=== PATIENT | female | born 1945 | race Caucasian/White ===

== ENCOUNTER 2019-02-21 12:58 | Emergency (ER) | payer MEDICAID ==
[~2019-02-21] VITALS: Ht 162.6 cm; Wt 80.7 kg
[2019-02-21 13:01] VITALS: Ht 162.6 cm; Wt 80.7 kg
--- NOTE | 2019-02-21 13:58 | ERD ---
ER Documentation Chief Complaint Chief Complaint palpitations x1 mo HPI The patient is a 73-year-old female, presenting to the ER because she needs EKG for her breast surgery tomorrow by Dr. Danielle. She denies any syncope, near syncope, neck pain, chest pain, complains of intermittent palpitation for the last month but denies any palpitation now, denies abdominal pain, vomiting. She does not smoke nor drink She was recently diagnosed with left breast cancer carcinoma Past medical history: History of left breast CA, hiatal hernia, hepatic cyst Past surgical history: Cholecystectomy ROS All systems reviewed and are negative except as per history of present illness. Allergies Allergies: Coded Allergies: No Known Allergy (Unverified , 02/18/19) PMhx/Soc History of Surgery: Yes (CHOLECYSTECTOMY) Anesthesia Reaction: No Hx Neurological Disorder: No Hx Respiratory Disorders: No Hx Cardiac Disorders: No Hx Psychiatric Problems: No Hx Miscellaneous Medical Probl: No Hx Alcohol Use: No Hx Substance Use: No Hx Tobacco Use: No Physical Exam Vitals Vital Signs Date Temp Pulse Resp B/P (MAP) Pulse Ox O2 O2 Flow FiO2 Time Delivery Rate 02/21/19 98.9 65 18 122/74 99 Room Air 14:17 (90) 02/21/19 98.1 65 18 150/80 98 13:01 (103) Physical Exam Const: No acute distress. Head: Atraumatic. Eyes: Normal Conjunctiva. ENT: Normal External Ears, Nose and Mouth. Neck: Full range of motion. No meningismus. Resp: Clear to auscultation bilaterally. Cardio: Regular rate and rhythm. Abd: Soft, non distended, normal bowel sounds, non tender. Skin: No petechiae or rashes. Back: No midline or flank tenderness. Ext: No cyanosis, or edema. Neur: Awake and alert. No focal deficit Psych: Normal Mood and Affect. Procedures/MDM EKG: Read by emergency physician Rate/Rhythm: Normal Sinus Rhythm 63 beats/min QRS, ST, T-waves: No ST elevation, anterior T abn Impression: Abnormal EKG MEDICAL MAKING DECISION: The patient is an 73-year-old female, presenting with intermittent palpitation but denies any symptom now, is stable for outpatient follow-up The differential diagnoses considered include but are not limited to acute coronary syndrome, acute myocardial infarction, pericarditis, pulmonary embolism, aortic dissection, pneumonia, pleural effusion, pneumothorax, GERD, chest wall pain. Departure Diagnosis: Primary Impression: Palpitations Condition: Good Comments The patient's blood pressure was elevated (>120/80) but appears stable without evidence of hypertension emergency or urgency. The patient was counseled about the risks of hypertension and urged to pursue outpatient monitoring and therapy within a week with their primary care physician. I discussed the findings with the patient. I advised the patient to follow-up with the primary physician in about 2-3 days, sooner if needed and return if any concern. Disclaimer: Inadvertent spelling and grammatical errors are likely due to EHR/dictation software use and do not reflect on the overall quality of patient care. Also, please note that the electronic time recorded on this note does not necessarily reflect the actual time of the patient encounter. FARHAT PROCTOR MD February 21, 2019 13:58
[2019-02-21 14:17] VITALS: BP 122/74; PULSE 65; RESP 18
[2019-02-22] MEDS ORDERED: DEXL60CA2 PO (09:01)
== END 2019-02-21 14:48 | disposition home or self-care (01) ==
LOC: E/R 12:58
DX: R00.2 Palpitations (principal); Z85.3 Personal history of malignant neoplasm of breast
CPT/HCPCS: 93005; Z7502

== ENCOUNTER 2019-02-22 06:33 | Inpatient (IN) | payer MEDICAID ==
[2019-02-18 18:51] VITALS: Ht 157.5 cm; Wt 80.0 kg
[~2019-02-22] VITALS: Ht 157.5 cm; Wt 80.0 kg
[2019-02-22] VITALS (15 sets, daily range): BP systolic 91–137; BP diastolic 53–78; PULSE 54–79; RESP 10–20
[~2019-02-22 06:33] MED LIST: CEFAZOLIN 2 GM/50 ML (PMX) 50 ML IVPB ONE
[2019-02-22] MEDS ORDERED: ACETAMINOPHEN 500 MG TAB PO ONE (07:30)
[2019-02-22] MEDS ORDERED: DESFLURANE 15 MIN ONE (08:00)
[2019-02-22] MEDS ORDERED: PROPOFOL 40 ML ONE (08:20)
[2019-02-22] MEDS ORDERED: MIDAZOLAM 1 MG/ML 2 ML INJ ONE (08:20)
[2019-02-22] MEDS ORDERED: FAMOTIDINE 20 MG INJ ONE (08:20)
[2019-02-22] MEDS ORDERED: CEFAZOLIN 1 GM INJ ONE (08:22)
[2019-02-22] MEDS ORDERED: FENTAnyl 50 MCG/ML VIAL ONE ×2 (08:22→11:18)
[2019-02-22] MEDS ORDERED: ONDANSETRON 4 MG INJ ONE (08:22)
[2019-02-22] MEDS ORDERED: ISOSULFAN BLUE 1% 5 ML INJ SC ONE (08:37)
[2019-02-22] MEDS ORDERED: DEXL60CA2 PO (09:01)
--- NOTE | 2019-02-22 09:39 | PREAC ---
Date/Time of Note Date/Time of Note DATE: 02/22/19 TIME: 09:37 Anesthesia Eval and Record Evaluation Time Pre-Procedure Interview DATE: 02/22/19 TIME: 09:37 Age 73 Sex female NPO: 8 hrs Preoperative diagnosis L breast CA Planned procedure L needle loc partial mastectomy Past Medical History Past Medical History: Includes GI: GERD, Other (esophageal hernia; gastritis) Surgery & Anesthesia Issues No known issue Meds Anticoagulation: No Beta Andre within 24 hr: No Reason Beta Andre not given: Pt. not on B-Andre Reported Medications Dexlansoprazole (Dexilant) 60 Mg Harley., 60 MG PO DAILY, #30 CAP 02/22/19 Meds reviewed: Yes Allergies Coded Allergies: No Known Allergy (Unverified , 02/22/19) Allergies Reviewed: Yes Labs/Studies Labs Reviewed: Reviewed by anesthesiologist Result Diagram: 02/18/19 1633 02/18/19 1633 test: N/A Studies: ECG, CXR Pre-procedure Exam Last vitals Vital Signs Date Temp Pulse Resp B/P (MAP) Pulse Ox O2 O2 Flow FiO2 Time Delivery Rate 02/22/19 96.8 58 16 137/78 98 Room Air 09:21 (97) Airway: Adequate mouth opening, Adequate thyromental dist Mallampati: Mallampati II Teeth: Abnormal (edentulous) Lung: Normal Heart: Normal ASA Physical Status ASA physical status: 2 Emergency: None Planned Anesthetic General/MAC: ETT Pre-operative Attestations Prior to commencing anesthesia and surgery, the patient was re-evaluated, there was verification of: *The patient's identity *The results of appropriate recent lab work and preoperative vital signs *The above evaluation not changing prior to induction *Anesthetic plan, risk benefits, alternative and complications discussed with patient/family; questions answered; patient/family understands, accepts and wishes to proceed. Financial Services Technician used HUYEN FRANKLIN February 22, 2019 09:39
[2019-02-22] MEDS ORDERED: HYDROmorphONE 1 MG/5 ML IV SYRINGE IV PRN ×3 (10:00)
[2019-02-22] MEDS ORDERED: morphine 2 MG INJ IV PRN ×3 (10:00→11:00)
[2019-02-22] MEDS ORDERED: LABETALOL HCL 20MG INJ IV PRN (10:00)
[2019-02-22] MEDS ORDERED: OXYCODONE/ACETAMINOPHEN (5/325) TAB PO PRN ×2 (10:00)
[2019-02-22] MEDS ORDERED: FENTAnyl 50 MCG/ML VIAL IV PRN (10:00)
[2019-02-22] MEDS ORDERED: ALBUTEROL 0.083% (NEB) 2.5 MG/3 ML AMP HHN PRN (10:00)
[2019-02-22] MEDS ORDERED: DIPHENHYDRAMINE 50 MG INJ IV PRN (10:00)
[2019-02-22] MEDS ORDERED: MEPERIDINE 25 MG INJ IV PRN (10:00)
[2019-02-22] MEDS ORDERED: ONDANSETRON 4 MG INJ IV PRN ×2 (10:00→11:00)
--- NOTE | 2019-02-22 10:59 | SIPON ---
Date/Time of Note Date/Time of Note DATE: 02/22/19 TIME: 10:58 Operative Report Preoperative Diagnosis Invasive cancer left breast Postoperative Diagnosis Same Operation/Procedure Performed Left needle directed partial mastectomy and axillary dissection utilizing sentinel lymph node technique Surgeon see signature line assisted living care manager Dr Bullock Anesthesia: general Estimated blood loss: 50 - 100 ml's Transfusion Required none Specimen Left partial mastectomy specimen and sentinel lymph node with additional axillary lymph nodes Grafts/Implants none Complications none CHAZ OZUNA MD February 22, 2019 10:59
[2019-02-22] MEDS ORDERED: ACETAMINOPHEN 1000MG/100ML IV 100 ML IVPB PRN (11:00)
[2019-02-22] MEDS ORDERED: PHENYLephrine (100 MCG/ML) 10ML SYG ONE (11:13)
[2019-02-22] MEDS ORDERED: EPHEDrine 25 MG/5 ML SYG ONE (11:13)
[2019-02-22] MEDS ORDERED: GLYCOPYRROLATE 0.4 MG INJ ONE (11:21)
[2019-02-22] MEDS ORDERED: NEOSTIGMINE 3 MG/3 ML SYRINGE ONE (11:21)
--- NOTE | 2019-02-22 11:45 | PAC ---
Date/Time of Note Date/Time of Note DATE: 02/22/19 TIME: 11:44 Post-Anesthesia Notes Post-Anesthesia Note Last documented vital signs Vital Signs Date Temp Pulse Resp B/P Pulse Ox O2 O2 Flow FiO2 Time (MAP) Delivery Rate 02/22/19 96.8 98.7 58 79 16 18 137/78 98 98 Room 09:21 113 (97) 93/ Air RA 9 54 Activity: WNL Respiratory function: WNL Cardiovascular function: WNL Mental status: Baseline Pain reasonably controlled: Yes Hydration appropriate: Yes Nausea/Vomiting absent: Yes HUYEN FRANKLIN February 22, 2019 11:45
[2019-02-22] MEDS: FENTAnyl 50 MCG/ML VIAL IV PRN ×2 (12:04→12:30)
[2019-02-22] MEDS: D5W-0.45 NACL + KCL 20 MEQ 1,000 ML IV SCH ×2 (15:36→18:39)
--- NOTE | 2019-02-22 15:38 | OPR ---
DATE OF OPERATION: 02/22/2019 PREOPERATIVE DIAGNOSIS: Invasive cancer, left breast. POSTOPERATIVE DIAGNOSIS: Invasive cancer, left breast. OPERATION PERFORMED: Needle-directed left partial mastectomy with axillary dissection utilizing sent inel lymph node technique. ANESTHESIA: General. ANESTHESIOLOGIST: Nurse electronic service technician, Racheal Terrell NP SURGEON: Anselmo Danielle MD FLAT OPTICAL ELEMENT MAKER: Jose Bullock MD INDICATIONS FOR PROCEDURE: The patient is a 73-year-old female who underwent screening mammography a nd was found to have a suspicious lesion in her left breast. Core biopsy confirmed a triple negative breast cancer. She and her family were counseled as to risks versus benefits of surgery. They cons ented and she was scheduled for surgery. DESCRIPTION OF PROCEDURE: On the morning of surgery, the patient presented to [facility] where she underwent localization of the lesion performed by attending radiolog ist, Dr. Chad Jensen. Subsequently, she was brought to the operating theater, placed under gener al anesthesia. The left breast and axillary region were prepped and draped in the usual sterile fash ion. Approximately 3 to 4 mL of 1% Lymphazurin blue dye were then injected peritumorally. The breas t was gently massaged for approximately 12 minutes. At this point, a 3 to 4 cm incision was made in the left axillary hairline. Subcutaneous tissue was dissected with cautery down through the clavipec kate fascia. A dye stain lymphatic was identified, traced to the sentinel lymph node. There were a dditional lymph nodes in this area. The sentinel node and some additional nodes were then resected u sing the LigaSure device. Specimen was removed and sent for intraoperative analysis performed by att ending pathologist, Dr. Mj Putnam. Frozen section of the sentinel node was negative for eviden ce of metastatic disease. Therefore, the specimen was sent for permanent pathologic analysis and no other lymph nodes were taken. The wound was irrigated. Minimal bleeding was controlled with cautery . A #10 [place] Gm-Liao drain was then brought through the left mid axillary line, cut to size and laid within the axilla. It was secured in place with 2-0 nylon sutures in standard fashion. The skin was then reapproximated with 4-0 Vicryl suture in subcuticular fashion. Attention was then dir ected to performing the partial mastectomy. A curvilinear anterior incision was made at the 2 o'cloc k location in the region of the previous placed localization wire for a length of approximately 4 to 5 cm. Subcutaneous tissue was dissected with cautery and the skin edges were elevated with skin hook s. Wide circumferential dissection of the tissue associated with the wire then took place, taking gr eat care to ensure adequate margin. Specimen was then elevated, transected, oriented, sent for radio graphic confirmation of capture. Capture was confirmed. Specimen was then sent for permanent pathol ogic analysis. The wound was irrigated. Minimal bleeding was controlled with cautery. A second latia in was brought through the left mid axillary line, cut to size and laid within the wound cavity. Ski n was reapproximated with a deep dermal layer, 4-0 Vicryl sutures in interrupted fashion, followed by final skin approximation with 5-0 PDS sutures in subcuticular fashion. Dermabond was then applied t o both incisions. The patient tolerated procedure well. The estimated blood loss was 80 mL. There were no complications and the patient was then transported in stable condition to the recovery room w here circumferential compression dressing was applied. Dictated By: ANSELMO FARAH/LASHA Conf#: [id number] DID#: [id number]
--- NOTE | 2019-02-22 16:49 | HP ---
DATE OF ADMISSION: 02/22/2019 CHIEF COMPLAINT AND HISTORY OF PRESENT ILLNESS: The patient is a 73-year-old female with history of invasive cancer of left breast. The patient was seen by Dr. Ozuna as an outpatient and brought into the hospital today and underwent left partial mastectomy and axillary resection utilizing sentinel ly mph node technique. The patient has significant chest wall pain and is being admitted for further ev aluation and management. The patient denies history of headache, dizziness, syncope. No reported na usea, vomiting. No reported abdominal pain. No reported resting leg pain. No reported shortness of breath. No reported any previous history of hypertension, diabetes or CHF. No history of CVA in th e past. No history of any musculoskeletal pain prior to surgery. REVIEW OF SYSTEMS: Other than postoperative pain, rest of review of systems is unremarkable. PAST MEDICAL HISTORY: As stated above. ALLERGIES: NONE. SOCIAL HISTORY: No smoking or alcohol. FAMILY HISTORY: Noncontributory. MEDICATIONS PRIOR TO ADMISSION: Dexilant. PHYSICAL EXAMINATION: GENERAL: Revealed the patient to be awake, alert, fairly oriented. VITAL SIGNS: Temperature 98.7, pulse 58, respiration 19, blood pressure 110/58, O2 saturation 96% on room air. HEENT: No eye discharge or redness. Conjunctivae and lids are normal. Nose and ears are normal. O ropharynx is clear. NECK: Supple. No mass, thyromegaly. CHEST: Fairly clear. No use of accessory muscles. CARDIOVASCULAR: Regular rate and rhythm. S1, S2 normal. No murmur. ABDOMEN: Soft, nondistended, nontender. Bowel sounds are present. EXTREMITIES: No leg edema. NEUROLOGIC: The patient is awake, alert, fairly oriented with no gross focal deficit. LABORATORY DATA: Recently WBC 5.9, hemoglobin 12.8, platelet 251. Sodium 142, potassium 4.2, BUN 18 , creatinine 0.7, glucose 99. AST 27, ALT 15, alkaline phosphatase 75, albumin 4.3. DIAGNOSTIC DATA: Chest x-ray is unremarkable. IMPRESSION: Invasive cancer of left breast, status post partial mastectomy and axillary resection. The patient will be admitted on medical floor. The patient will be started on clear liquid diet, whi ch will be advanced as tolerated. For pain, the patient was started on IV Tylenol, [place] and IV morp kael depending upon severity of pain. For deep venous thrombosis prophylaxis, we will use SCDs. If the patient continues to do well, she will be discharged home tomorrow. We will do followup labs. Dictated By: MELY DONAHUE/LASHA Conf#: [id number] DID#: [id number] CC: CHAZ OZUNA MD;*End*
[2019-02-22] MEDS ORDERED: DIPHENHYDRAMINE 50 MG INJ IV ONE (18:00)
[2019-02-22] MEDS ORDERED: METOCLOPRAMIDE 10 MG INJ IV PRN (18:00)
[2019-02-22] MEDS ORDERED: HYDROCORTISONE 100 MG INJ IV ONE (18:00)
--- NOTE | 2019-02-22 18:13 | EN ---
Date/Time of Note Date/Time of Note DATE: 02/22/19 TIME: 18:05 Event Note Medicine Medicine Event Note Rapid response called around 17:39 for suspected acute anaphylaxis. Briefly, Ms. Juarez is a 73 yo woman admitted for scheduled mastectomy. After surgery she was on IV morphine for pain control. After her first dose of IV zofran in the hospital, she complained of sudden onset cheek swelling and difficulty breathing. Dr. Diaz was called and ordered IV benadryl and IV hydrocortisone. Apparently the patient's family was very concerned and wanted IM epinephrine administered as well, so rapid response was called. On my evaluation the patient was sitting comfortably in bed, saturating 100% on room air, BP and pulse normal. I noticed she had swollen and boggy parotid glands bilaterally, and they were very tender to touch. She was able to open her mouth fully and the airway seems widely patent without notable adenopathy. Heart rate normal and there was no wheezing on auscultation of the lungs. Plan: 1. If this is an acute drug reaction, it's an unusual one. The patient did respond to benadryl and hydrocortisone. No epinephrine is needed and can continue to observe in med/surg. 2. I suspect parotid gland pathology, but bilateral presentation would be unusual. If swelling does not subside in the morning consider ultrasound to evaluate for stone or abscess. 45 minutes critical care time spent on this patient. STEPHON ESPARZA MD February 22, 2019 18:13
[2019-02-23] MEDS: D5W-0.45 NACL + KCL 20 MEQ 1,000 ML IV SCH ×3 (00:39→17:49)
[2019-02-23 02:00] VITALS: BP 97/54; PULSE 58; RESP 18
[2019-02-23] MEDS: PANTOPRAZOLE (EC) 40 MG TAB PO SCH (06:03)
[2019-02-23 07:30] VITALS: BP 126/70; PULSE 59; RESP 18
[2019-02-23 13:35] VITALS: BP 134/70; PULSE 66; RESP 18
[2019-02-23] MEDS ORDERED: ACETAMINOPHEN 325 MG TAB PO PRN (16:00)
[2019-02-23] MEDS: DIPHENHYDRAMINE 50 MG INJ IV SCH ×2 (16:14→22:00)
--- NOTE | 2019-02-23 17:32 | PN ---
DATE: 02/23/2019 Postop day #1 status post left breast partial mastectomy and axillary resection for the cancer of the left breast. SUBJECTIVE: She does not have any complaint in regard to difficulty in breathing or chest pain or an ything related to the events which has occurred for her last night, but complains of too much frontal headache. Apparently, last night, after receiving probably Zofran or could be morphine, no one is s ure about that, the patient complained of difficulty breathing and swelling of the face, so they have called the rapid response team on the patient and the patient was [facility]. According to his note, by the time he got there, the patient was examined and th e patient was not in any acute distress, no respiratory difficulty, therefore, the patient should be seen today by medical service that are following the patient and make a decision about that. OBJECTIVE: GENERAL: Awake, alert, oriented. VITAL SIGNS: Temperature 98.7, heart rate 58, respirations 18, blood pressure 126/70, saturation 94% room air. HEART: Regular. LUNGS: Clear. No stridor, no wheezing. CHEST: Symmetrical expansion. Dressing is intact. Gm-Liao drain has drained from time of ope ration to 7:00 today morning. They have drained totally 35 mL, which is serosanguineous. LABORATORY DATA: WBC 6900 with 72% segmented, hemoglobin 11.8, hematocrit 37.5. Chemistry: Sodium, potassium, BUN and creatinine normal. ASSESSMENT AND PLAN: I cannot figure out what happened to the patient yesterday. Dr. Diaz, Inte [facility], believes that probably she has some reaction or sensitivity to the Zofran which has re sponded to antihistamines and we should also consider the possibility for sensitivity to morphine, th erefore, from surgical point of view, the patient can be discharged home today, but Dr. Diaz is g oing to see the patient and make a decision about further workup or discharging the patient. Then, t he patient should be followed by Dr. Danielle in the office for the operation followup. Dictated By: HIRAM CUNHA MD PS/NTS Conf#: [id number] DID#: [id number] CC: CHAZ DANIELLE MD;*EndCC*
[2019-02-23] MEDS: HYDROCORTISONE 100 MG INJ IV SCH ×2 (17:44→23:57)
--- NOTE | 2019-02-23 18:15 | PN ---
DATE: 02/23/2019 SUBJECTIVE: Follow up on recent left partial mastectomy. The patient last night had an allergic lucien ction possibly due to IV Zofran. The patient reported that she has received IV morphine in the past. The patient was given IV hydrocortisone and Benadryl. The patient is complaining of bilateral paro tid gland pain, right more than left. The patient is able to take p.o. and was able to open her mout h. There is no respiratory distress. The patient's O2 sats have between 93% to 97% on room air. Th e patient has not spiked fever. The pain in the left breast is much better. PHYSICAL EXAMINATION: GENERAL: Revealed the patient to be awake, alert. VITAL SIGNS: Temperature 98.3, pulse 62, respiration 18, blood pressure 134/70, O2 saturation 93% to 97% room air. HEENT: No eye discharge or redness. Conjunctivae and lids are normal. Oropharynx is grossly negati ve. NECK: The patient has mild swelling of bilateral parotid gland. Right is slightly more tender than left. No obvious erythema of skin. No skin breakdown. No lymphadenopathy. LUNGS: Fairly clear. CARDIOVASCULAR: S1, S2 normal. ABDOMEN: Soft, nondistended, nontender. EXTREMITIES: No edema. NEUROLOGIC: The patient is awake, alert, fairly oriented. LABORATORY DATA: Done today revealed sodium 142, potassium 4.4, BUN and creatinine within normal bass it. WBC 6.9, hemoglobin 11.8 with no left shift. IMPRESSION: Allergic reaction to Zofran. We will start her on IV Benadryl and IV hydrocortisone and we will monitor her in-house for another 24 hours. Further recommendation and management will depend on the patient's hospital course. Dictated By: MELY FONSECA MD AB/NTS Conf#: [id number] DID#: [id number] CC: CHAZ OZUNA MD;*EndCC*
[2019-02-23 20:00] VITALS: BP 123/66; PULSE 73; RESP 18
[2019-02-23] MEDS ORDERED: BISACODYL (EC) 5 MG TAB PO ONE (22:00)
[2019-02-24 02:12] VITALS: BP 113/56; PULSE 60; RESP 18
[2019-02-24] MEDS: DIPHENHYDRAMINE 50 MG INJ IV SCH ×2 (04:00→09:53)
[2019-02-24] MEDS: PANTOPRAZOLE (EC) 40 MG TAB PO SCH (05:57)
[2019-02-24] MEDS: HYDROCORTISONE 100 MG INJ IV SCH ×3 (05:57→13:39)
[2019-02-24 07:46] VITALS: BP 133/84; PULSE 64; RESP 18
[2019-02-24 15:34] VITALS: BP 142/78; PULSE 65; RESP 18
[2019-02-24] MEDS ORDERED: IBUP-1542 PO (17:28)
[2019-02-24] MEDS ORDERED: DIPH25CA6 PO (17:28)
--- NOTE | 2019-02-24 20:34 | PN ---
DATE: 02/24/2019 Postop day #2, status post left breast partial mastectomy with axillary, sentinel lymph node dissection. SUBJECTIVE: The patient feels much better. No specific complaint today. No difficulty in breathing. No nausea, no vomiting, no rashes. As we know, . The patient had some reaction, possibly an allergic reaction to Zofran that requires the rapid response team to come, to see and evaluate. Eventually, the patient was given Benadryl and steroids and her symptoms disappeared gradually. Next day, which was yesterday, the patient was observed. OBJECTIVE: GENERAL: Status stable and almost everything was stable for the sake of security and caution. One more night, the patient was observed and remained stable. Therefore, patient can be discharged home today from medical point of view. From surgical point of view, we said that the patient could have been discharged yesterday and of course he can be discharged as well today. VITAL SIGNS: Today, temperature maximum has been 98.6, heart rate 65, respiration 18, blood pressure 142/78, saturation 97% room air. I and O's are two Gm-Liao drain that goes together and they have drained 57 mL in the past 24 hours. The color of the drainage right now in the tubing is serous. PLAN: We will send the patient home with this two Gm-Liao drains. Family was instructed on how to drain the tubes and bags, and how to record them and when the patient goes to Dr. Danielle' office for followup to take the recording so that they can make a decision for removal. The patient is also to call Dr. Danielle' office tomorrow and make an appointment for followup. Medical service will see the patient and discharge the patient and appropriate medication will be given to the patient. Dictated By: HIRAM CUNHA MD PS/NTS Conf#: [id number] DID#: [id number] CC: CHAZ DANIELLE MD; FARHAT PROCTOR MD;*EndCC* MTDD
--- NOTE | 2019-02-24 23:37 | DS ---
Date/Time of Note Date/Time of Note DATE: 02/24/19 TIME: 23:31 Discharge Summary Admission/Discharge Info Admit Date/Time February 22, 2019 at 10:59 Discharge Date/Time February 24, 2019 at 18:50 Patient Condition: Stable Hx of Present Illness The patient is a 73-year-old female with history of invasive cancer of left breast. The patient was seen by Dr. Danielle as an outpatient and brought into the hospital today and underwent left partial mastectomy and axillary resection utilizing sentinel lymph node technique. The patient has significant chest wall pain and is being admitted for further evaluation and management. The patient denies history of headache, dizziness, syncope. No reported nausea, vomiting. No reported abdominal pain. No reported resting leg pain. No reported shortness of breath. No reported any previous history of hypertension, diabetes or CHF. No history of CVA in the past. No history of any musculoskeletal pain prior to surgery. Hospital Course -Allergic reaction to Zofran, subsided. S/p IV Benadryl and IV hydrocortisone. -Invasive cancer of left breast, status post partial mastectomy and axillary resection. Plan of care discussed with Dr. Diaz. Home Meds Active Scripts Diphenhydramine Hcl* (Diphenhydramine Hcl*) 25 Mg Capsule, 25 MG PO Q6 PRN for ITCHING, #30 CAP Prov:ESTELA RIVERS 02/24/19 Ibuprofen* (Motrin*) 600 Mg Tab, 600 MG PO Q6H PRN for PAIN, #30 TAB Prov:ESTELA RIVERS 02/24/19 Reported Medications Dexlansoprazole (Dexilant) 60 Mg Cap., 60 MG PO DAILY, #30 CAP 02/22/19 Follow-up Plan Follow-up with Dr. Danielle in 1 to 2 weeks. Primary Care Provider Not On Staff Doctor Time spent on discharge: > 30 minutes Pending Labs Laboratory Tests Test 02/24/19 04:35 Sodium Level 141 mmol/L (135-144) Potassium Level 4.2 mmol/L (3.5-5.1) Chloride Level 111 mmol/L (97-110) Carbon Dioxide Level 25 mmol/L (21-31) Anion Gap 5 (5-13) Blood Urea Nitrogen 13 mg/dl (7-20) Creatinine 0.63 mg/dl (0.44-1.00) Est Glomerular Filtrat Rate mL/min mL/min (>60) Glucose Level 154 mg/dl (70-220) Calcium Level 8.9 mg/dl (8.4-10.2) ESTELA RIVERS February 24, 2019 23:37
== END 2019-02-24 18:50 | disposition home or self-care (01) | DRG 581 ==
LOC: SUR 06:33 → SDS 06:33 → SUR 10:58 → REC 10:59 → 2NE 13:15
PROVIDERS: ADMIT Surgery Surgical Oncology; ATTEND Surgery Surgical Oncology
PROC: 07B60ZX Excision of Left Axillary Lymphatic, Open Approach, Diagnostic (ICD-10-PCS; 2019-02-22)
PROC: 0HBU0ZZ Excision of Left Breast, Open Approach (ICD-10-PCS; principal; 2019-02-22 09:00)
DX: C50.912 Malignant neoplasm of unspecified site of left female breast (principal); K21.9 Gastro-esophageal reflux disease without esophagitis; R22.1 Localized swelling, mass and lump, neck; T45.0X5A Adverse effect of antiallergic and antiemetic drugs, initial encounter; Y92.239 Unspecified place in hospital as the place of occurrence of the external cause
CPT/HCPCS: 71045; 80048; 80053; 85025; 85610; 85730; 88307; 88331; 93005; J0690; J1170; J1200; J1720; J2250; J2270; J2370; J2405; J2710; J3010; J3480; Q9968

== ENCOUNTER 2019-04-18 07:19 | Day surgery (SDC) | payer MEDICAID ==
[~2019-04-18] VITALS: Ht 154.9 cm; Wt 80.7 kg
[~2019-04-18 07:19] MED LIST changes: -CEFAZOLIN 2 GM/50 ML (PMX) 50 ML IVPB ONE; +DEXL60CA2 PO; +DIPH25CA6 PO; +IBUP-1542 PO
[2019-04-18] MEDS ORDERED: CEFAZOLIN 2 GM/50 ML (PMX) 50 ML IVPB ONE (08:30)
[2019-04-18 08:39] VITALS: Ht 154.9 cm; Wt 80.7 kg
[2019-04-18 08:42] VITALS: BP 135/79; PULSE 64; RESP 16
[2019-04-18] MEDS ORDERED: HEPARIN 1000 UNITS/ML 10 ML INJ ONE (08:43)
[2019-04-18] MEDS ORDERED: CEFAZOLIN 1 GM/50 ML (PMX) 50 ML IVPB ONE (08:43)
[2019-04-18] MEDS ORDERED: LIDOCAINE 1% (MDV) 20 ML INJ ONE (08:43)
[2019-04-18] MEDS ORDERED: POLYMYXIN/BACITRACIN 1L IRRIG IRR ONE (09:00)
[2019-04-18] MEDS ORDERED: FENTAnyl 50 MCG/ML VIAL ONE (09:02)
[2019-04-18] MEDS ORDERED: MIDAZOLAM 1 MG/ML 2 ML INJ ONE (09:02)
[2019-04-18 09:45] VITALS: BP 149/74; PULSE 57; RESP 20
--- NOTE | 2019-04-18 09:45 | HPN ---
Date/Time of Note Date/Time of Note DATE: 04/18/19 TIME: 09:45 Interval H&P Admission Note Pt. seen H&P reviewed: No system changes RUFUS MARRERO MD Apr 18, 2019 09:45
--- NOTE | 2019-04-18 09:47 | RADRPT ---
PROCEDURE: RIGHT INTERNAL JUGULAR PORT PLACEMENT CLINICAL INDICATION: Breast cancer TECHNIQUE: Versed and Fentanyl were administered by the radiology nurse who monitored the patient. Ancef one gram intravenously was also administered preoperatively. Conscious sedation time: 30 min Fluoroscopy time: 0.6 min Number of images/cine sequences: 1 Informed consent was obtained following careful explanations of the risks and benefits of the procedu re. Preliminary ultrasound was obtained and demonstrates a widely patent right internal jugular vein. This central venous catheter was inserted with all elements of maximal sterile barrier technique, cap AND mask AND sterile gown AND sterile gloves AND sterile full-body drape AND hand hygiene AND 2% chl orhexidine for cutaneous antisepsis. Sterile Ultrasound technique with sterile gel and sterile probe covers was also utilized. The patients right chest and neck were prepped and draped in the usual sterile fashion. 1% lidocai ne was utilized. The right internal jugular vein was punctured with a micropuncture needle under dire ct ultrasound guidance and a guide wire was advanced into the central veins as confirmed by fluorosco py. The needle was exchanged for an introducer. A recorded ultrasound image was not obtained. A site in the patients chest wall was selected and 1% lidocaine with epinephrine was administered to the skin. Utilizing a #15 blade, an incision was made and a pocket was created utilizing blunt dis section with a Ginger clamp. The pocket was irrigated with normal saline. The catheter of the port was then tunneled retrograde from the pocket towards the puncture site in th e patients neck. A guidewire was advanced through the introducer in the patients neck and the i ntroducer was exchanged over the wire for a #9 [place] sheath, which was placed in the right internal jugular vein. The catheter was advanced through the peel-away sheath and the sheath was removed. The tip of the catheter was placed in the mid right atrium. The proximal end of the catheter was then cut to the appropriate length and connected to the port. The port was placed inside the pocket. It flush ed and aspirated well. A photo spot image confirms proper positioning of the catheter tip in the upper right atrium. The incision in the patients chest was closed with interrupted subcutaneous 2-0 Vicryl sutures. Th e incision in the neck was closed with a subcuticular 4-0 Vicryl suture. Dermabond was applied to bot h incisions and Steri-Strips were also applied. The port was accessed and flushed with heparinized saline. A sterile dressing was applied. The patient tolerated the procedure well COMPARISON: none FINDINGS: as above. RPTAT: AA IMPRESSION: 1. Uncomplicated placement of a #7 [place] single lumen Power Injectable Port in the right internal ju gular vein with its tip overlying the upper right atrium region. 2. The catheter is ready for use. .Elijah Gutierrez MD, MD Date Time Electronically viewed and signed by .Elijah Gutierrez MD, on 04/18/2019 09:47 .S/
[2019-04-18] MEDS ORDERED: OXYCODONE/ACETAMINOPHEN (5/325) TAB PO ONE (12:00)
[2019-04-18 12:33] VITALS: BP 149/74; PULSE 57; RESP 20
[2019-04-22] MEDS ORDERED: HYDR-4011 PO (19:32)
== END 2019-04-18 12:47 | disposition home or self-care (01) ==
LOC: SDS 07:19
PROVIDERS: ATTEND Radiology Diagnostic Radiology
DX: C50.912 Malignant neoplasm of unspecified site of left female breast (principal)
CPT/HCPCS: 36561; C1788; J0690; J1644; J2250; J3010; Z7610

== ENCOUNTER 2019-04-22 15:23 | Emergency (ER) | payer MEDICAID ==
[~2019-04-22] VITALS: Ht 165.1 cm; Wt 80.4 kg
[~2019-04-22 15:23] MED LIST changes: -DIPH25CA6 PO; +HYDR-4011 PO; -IBUP-1542 PO
[2019-04-22 15:46] VITALS: Ht 165.1 cm; Wt 80.4 kg
--- NOTE | 2019-04-22 17:53 | ERD ---
ER Documentation Chief Complaint Chief Complaint pt c/o pain at surgical site for chemo therapy access x 2 days HPI Patient has a history of breast cancer has not started chemotherapy yet 4 days ago had a right chest port placed to initiate chemotherapy. Has had significant pain in this area since then. Here for concern for the pain. No discharge from the wound site. No pain anywhere else. No nausea or vomiting. No headache. No fevers. ROS All systems reviewed and are negative except as per history of present illness. Medications Home Meds Reported Medications Dexlansoprazole (Dexilant) 60 Mg Harley., 60 MG PO DAILY, #30 CAP 02/22/19 Discontinued Scripts Diphenhydramine Hcl* (Diphenhydramine Hcl*) 25 Mg Capsule, 25 MG PO Q6 PRN for ITCHING, #30 CAP Prov:ESTELA RIVERS 02/24/19 Ibuprofen* (Motrin*) 600 Mg Tab, 600 MG PO Q6H PRN for PAIN, #30 TAB Prov:ESTELA RIVERS 02/24/19 Allergies Allergies: Coded Allergies: guaifenesin (Verified Allergy, Severe, 04/22/19) rash ondansetron (Verified Allergy, Unknown, Possible allergic reaction, throat swelling, ear pain, 04/22/19) PMhx/Soc History of Surgery: Yes (partial mastectomy of the left breast/cholesystectomy , PORT A CATH ) Anesthesia Reaction: No Hx Neurological Disorder: No Hx Respiratory Disorders: No Hx Cardiac Disorders: No Hx Psychiatric Problems: No Hx Miscellaneous Medical Probl: No Hx Alcohol Use: No Hx Substance Use: No Hx Tobacco Use: No Smoking Status: Never smoker Physical Exam Vitals Vital Signs Date Temp Pulse Resp B/P (MAP) Pulse Ox O2 O2 Flow FiO2 Time Delivery Rate 04/22/19 74 17 136/81 Room Air 19:20 (99) 04/22/19 98.4 77 16 158/87 96 15:46 (110) Physical Exam Const: No acute distress Head: Atraumatic Eyes: Normal Conjunctiva ENT: Normal External Ears, Nose and Mouth. Neck: Full range of motion. No meningismus. Resp: Clear to auscultation bilaterally Cardio: Regular rate and rhythm, no murmurs Abd: Soft, non tender, non distended. Normal bowel sounds Skin: No petechiae or rashes port site with mild ecchymosis no discharge no erythema is tender to touch Back: No midline or flank tenderness Ext: No cyanosis, or edema Neur: Awake and alert Psych: Normal Mood and Affect Result Diagram: 04/22/19181404/22/191814 Results 24 hrs Laboratory Tests Test 04/22/19 18:15 White Blood Count 7.3 10^3/ul Red Blood Count 4.26 10^6/ul Hemoglobin 12.5 g/dl Hematocrit 37.9 % Mean Corpuscular Volume 89.0 fl Mean Corpuscular Hemoglobin 29.3 pg Mean Corpuscular Hemoglobin Concent 33.0 g/dl Red Cell Distribution Width 13.7 % Platelet Count 289 10^3/UL Mean Platelet Volume 9.3 fl Immature Granulocytes % 0.100 % Neutrophils % 62.6 % Lymphocytes % 27.8 % Monocytes % 7.9 % Eosinophils % 1.2 % Basophils % 0.4 % Nucleated Red Blood Cells % 0.0 /100WBC Immature Granulocytes # 0.010 10^3/ul Neutrophils # 4.5 10^3/ul Lymphocytes # 2.0 10^3/ul Monocytes # 0.6 10^3/ul Eosinophils # 0.1 10^3/ul Basophils # 0.0 10^3/ul Nucleated Red Blood Cells # 0.0 10^3/ul Sodium Level 139 mmol/L Potassium Level 4.1 mmol/L Chloride Level 107 mmol/L Carbon Dioxide Level 23 mmol/L Anion Gap 9 Blood Urea Nitrogen 17 mg/dl Creatinine 0.63 mg/dl Est Glomerular Filtrat Rate mL/min mL/min Glucose Level 102 mg/dl Calcium Level 9.6 mg/dl Current Medications Medications Dose Sig/Aye Start Time Status Last (Trade) Ordered Route PRN Stop Time Admin Dose Reason Admin 1 tab ONCE ONCE 04/22/19 04/22/19 Acetaminophen PO 19:30 19:26 / 04/22/19 19:31 Hydrocodone Bitart ([place] ([id number])) Procedures/MDM Patient presenting for pain at the insertion site of recent placed port right chest 4 days ago. No fevers no chills no pus drainage no erythema from the site. Low suspicion for infection. Chest x-ray with well-placed cath. No leukocytosis. Pain control. Likely pain from procedure. Patient has follow-up on Derrek we will discharge with strict return precautions Departure Diagnosis: Primary Impression: Postoperative complication Condition: Stable Patient Instructions: Post Op Wound Check, Pain FARHAT GOODRICH MD Apr 22, 2019 17:53
[2019-04-22] MEDS ORDERED: HYDROCODONE/APAP (5/325) TAB PO ONE (19:30)
[2019-04-22 19:48] VITALS: BP 135/82; PULSE 72; RESP 16
== END 2019-04-22 19:48 | disposition home or self-care (01) ==
LOC: E/R 15:23
DX: G89.18 Other acute postprocedural pain (principal); C50.912 Malignant neoplasm of unspecified site of left female breast
CPT/HCPCS: 71045; 80048; 85025; Z7502; Z7610